=== PATIENT | male | born 1985 | race African-American/Black ===

== ENCOUNTER 2019-07-10 01:14 | Emergency (ER) | payer MEDICAID ==
[~2019-07-10] VITALS: Ht 185.4 cm; Wt 79.0 kg
[2019-07-10] MEDS ORDERED: IBUPROFEN 800MG TABLET PO ONE (03:00)
[2019-07-10 05:50] VITALS: BP 128/88
== END 2019-07-10 05:59 | disposition home or self-care (01) ==
LOC: ER 01:14
DX: S93.402A Sprain of unspecified ligament of left ankle, initial encounter (principal); F17.200 Nicotine dependence, unspecified, uncomplicated; X50.1XXA Overexertion from prolonged static or awkward postures, initial encounter; Y93.67 Activity, basketball; Y92.9 Unspecified place or not applicable
CPT/HCPCS: 29515; 73610; 99283; Z7610

== ENCOUNTER 2024-05-23 21:51 | Emergency (ER) | payer MEDICAID ==
[~2024-05-23] VITALS: Ht 185.4 cm; Wt 66.0 kg
[2024-05-23 21:56] VITALS: BP 127/90; PULSE 102; RESP 18; TEMP 98.2; O2SAT 100
== END 2024-05-23 23:42 | disposition left against medical advice (07) ==
LOC: ER 21:51
DX: M54.50 Low back pain, unspecified (principal); F12.10 Cannabis abuse, uncomplicated
CPT/HCPCS: 99281